=== PATIENT | male | born 1950 | race Caucasian/White ===

== ENCOUNTER 2017-03-03 07:26 | Emergency (ER) | payer OTHER, MEDICARE ==
[~2017-03-03] VITALS: Ht 177.8 cm; Wt 68.0 kg
[2017-03-03 09:07] VITALS: BP 102/44
== END 2017-03-03 09:08 | disposition home or self-care (01) ==
LOC: ER 07:26
DX: S83.8X1A Sprain of other specified parts of right knee, initial encounter (principal); X58.XXXA Exposure to other specified factors, initial encounter; Y93.89 Activity, other specified; Y92.89 Other specified places as the place of occurrence of the external cause; Y99.8 Other external cause status

== ENCOUNTER → 2020-01-10 | Outpatient (CLI) | payer OTHER, MEDICARE ==
[~2020-01-10] VITALS: Ht 177.8 cm; Wt 68.0 kg
--- NOTE | ~2020-01-10 | P ---
[facility] [place] [address] PROCEDURE REPORT Name: JEIMY BASSETT Room #: REG [facility].#: [id number] Admission: 01/10/20 Attend Phys: Chriss Leomn Discharge: Date of : 48 Report #: [id number] THIS REPORT FOR: cc: Elmer Carcamo MD, Rene P. MD McElhinney, Christian C. MD ~ CC: Chriss Carcamo MD DATE OF SERVICE: 01/10/2020 PROCEDURE PERFORMED: Flexible sigmoidoscopy with bleeding control. HISTORY OF PRESENT ILLNESS: The patient is a 69-year-old male with a previous history of prostate cancer, status post radiation therapy. He underwent a colonoscopy by myself on 08/07/2019 for previous history of polyps. Colonoscopy was normal other than radiation changes noted in the rectum; at that time, there was no bleeding. The patient now reports bright red blood per rectum as well as clots at times. Plan is for flexible sigmoidoscopy. DESCRIPTION OF PROCEDURE: The risks and benefits of the procedure were explained to the patient, those risks including but not limited to bleeding, perforation and the risk of sedation. He understood these risks and gave informed consent. Sedation was given using propofol per anesthesia. Next, a digital rectal exam was initially performed, which was normal. Next, using a standard Olympus colonoscope, the scope was placed in the patient's anus and advanced under direct vision into the distal sigmoid colon. Upon entering the rectum, there is obvious bright red blood with clots throughout the rectum. Multiple washings and aspirations were performed. 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 I advanced the scope into the distal sigmoid colon. The upper rectum was normal. Distal sigmoid colon all normal. The scope was then brought back down to the distal rectum and I then proceeded with treating with APC cautery. All areas were treated. There was no further bleeding noted after treatment. Small internal hemorrhoids, nonbleeding, were also noted. The scope was then withdrawn and the procedure terminated. The patient tolerated the procedure well. 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 No further bleeding after treatment. RECOMMENDATIONS: 1. Observe the patient post-procedure. 2. If he has recurrent bleeding in the future, could repeat APC cautery on a p.r.n. basis. [address] [address] PROCEDURE REPORT Name: JEIMY BASSETT Room #: REG CLI Tj#: [id number] Admission: 01/10/20 Attend Phys: Chriss Lemon Discharge: Date of : 48 Report #: [id number] Thank you for allowing me to participate in his care. By: [id number] Chriss eNw MD /nt
== END ==
LOC: GI 08:56
DX: K62.5 Hemorrhage of anus and rectum (principal); K62.7 Radiation proctitis; K64.8 Other hemorrhoids; Z98.890 Other specified postprocedural states; Z79.899 Other long term (current) drug therapy; Z85.46 Personal history of malignant neoplasm of prostate; Z86.010 Personal history of colon polyps; Z98.41 Cataract extraction status, right eye; Z98.42 Cataract extraction status, left eye

== ENCOUNTER → 2021-01-16 | Outpatient (CLI) | payer OTHER, MEDICARE | LOC: LAB 11:32 | PROVIDERS: ATTEND Family Medicine | DX: U07.1 COVID-19 (principal); R05 Cough ==